=== PATIENT | female | born 1965 ===

== ENCOUNTER 2022-04-21 23:12 | Emergency (ER) | payer OTHER, SELFPAY ==
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
[2022-04-21 23:55] VITALS: BMI 22.8
--- NOTE | 2022-04-21 23:59 | PC.NURSE ---
Pt. not speaking to staff or participating in any questions/answers. Sitting in hallway bed safely. Pt. does speak to state that her is coming to get her.
--- NOTE | 2022-04-22 00:04 | PC.NURSE ---
Pt.'s arrived and Sammi Cohen NP over to talk to pt. and her . wondering what's going on. [employer] explaining to that pt. was brought in tonight and has not been communicative or willing to speak to/elaborate with staff. Pt. immediately spoke and told [employer] that that's not true, and she has been more than willing to talk to staff. Then pt. made multiple attempts to walk out of ED, but was able to be redirected by her .
--- NOTE | 2022-04-22 00:20 | PC.NURSE ---
Pt. becoming verbally aggressive with and getting in 's face
--- NOTE | 2022-04-22 00:21 | PC.NURSE ---
Pt. up for discharge, but refused to sign discharge paperwork. After refusal to sign discharge, pt. out of chair and roaming hallways of ED. Redirected to exit/front lobby. Steady gait noted.
--- NOTE | 2022-04-22 00:25 | PC.NURSE ---
Discharge instructions given and explained. Refused to answer questions and refused care. Pt was belligerent towards staff and became verbally aggressive towards upon her 's arrival. remained calm and did not engage. Pt refused to sign discharge paperwork. Pt left with as arrived to pick her up. Steady gait noted. Pt had to be redirected several times as to how to exit ED as she continued to speed walk without allowing any staff to assist her on how to exit.
== END 2022-04-22 00:15 | disposition home or self-care (01) ==
PROVIDERS: Emergency Provider Internal Medicine
DX: Z04.1 Encounter for examination and observation following transport accident (principal); F10.920 Alcohol use, unspecified with intoxication, uncomplicated; Y90.9 Presence of alcohol in blood, level not specified
CPT/HCPCS: 99282

== ENCOUNTER 2022-05-20 07:46 | Outpatient (RCR) | payer OTHER, SELFPAY | END 2022-05-20 23:59 | disposition home or self-care (01) | LOC: HO.PHPA 07:46 | PROVIDERS: Visit Provider Psychiatry & Neurology Psychiatry | DX: F43.10 Post-traumatic stress disorder, unspecified (principal) ==